=== PATIENT | male | born 1975 | race Caucasian/White ===

== ENCOUNTER 2016-09-26 18:53 | Emergency (ER) | payer BC ==
[2016-09-26 19:20] VITALS: BP 170/93
--- NOTE | 2016-09-26 19:55 | EDM.PDOC ---
ED HPI GENERAL MEDICAL PROBLEM - General Chief Complaint: Respiratory Problem Stated Complaint: COL/COUGH/WHEEZING/SHORT OF BREATH Time Seen by Provider: 09/26/16 19:40 Source of Information: Reports: Patient History Limitations: Reports: No Limitations - History of Present Illness INITIAL COMMENTS - FREE TEXT/NARRATIVE: HISTORY AND PHYSICAL: History of present illness: [Patient comes emergency room complaining of cough sputum production. He was evaluated about 10 days ago at [facility] and diagnosed with bilateral ear infection and bronchitis. He was started on Augmentin that he was supposed to take for 10 days. He completed 5 days of Augmentin and felt completely improved. He is not taking the medicine. This morning his symptoms returned and he is feeling worse than he did previously. He took 2 doses of Augmentin today and has not felt significantly improved. He denies fever and chills. Her crackling sound in his chest once earlier today but this resolved with coughing. No wheezing. No, pain nausea or vomiting. He has no other complaints or concerns at this time. He is not taking any [id number] medications for his symptoms.] Review of systems: As per history of present illness and below otherwise all systems reviewed and negative. Past medical history: As per history of present illness and as reviewed below otherwise noncontributory. Surgical history: As per history of present illness and as reviewed below otherwise noncontributory. Social history: No reported history of drug or alcohol abuse. Family history: As per history of present illness and as reviewed below otherwise noncontributory. Physical exam: HEENT: Atraumatic, normocephalic. Right TM is very slightly injected without surrounding erythema or bulging. Oral mucous membranes are pink and moist tonsillar swelling erythema or exudate. Neck is supple no lymphadenopathy. No tenderness. Lungs: Clear to auscultation, breath sounds equal bilaterally, no wheezing crackles or rales. chest nontender. Heart: S1S2, regular, negative for clicks, rubs, or JVD. Genitourinary: Deferred. Rectal: Deferred. Extremities: Atraumatic, ambulates without difficulty or assistive device. Neurovascular unremarkable. Neuro: Awake, alert, oriented. Motor and sensory unremarkable throughout. Exam nonfocal. Impression: [URI] Plan: [Azithromycin in the form of a Z-Abdulaziz #1 use instructed zero refills is sent to the pharmacy. Recommend Robitussin and Delsym cough syrup as needed. Followup with PCP if not improving. He is in agreement with today's plan. All of his questions are answered and concerns are addressed her] Definitive disposition and diagnosis as appropriate pending reevaluation and review of above. - Related Data Allergies Allergy/AdvReac Type Severity Reaction Status Date / Time No Known Allergies Allergy Verified 09/26/16 19:13 Home Meds: Home Meds Azithromycin [IJD: Azithromycin] 250 mg PO ASDIRECTED #6 tab 09/26/16 [Rx] Past Medical History - Past Health History Medical/Surgical History: Denies Medical/Surgical History Social & Family History - Family History Family Medical History: Noncontributory - Tobacco Use Smoking Status *Q: Never Smoker Second Hand Smoke Exposure: No - Caffeine Use Caffeine Use: Reports: None - Alcohol Use Days Per Week of Alcohol Use: 0 - Recreational Drug Use Recreational Drug Use: No ED ROS GENERAL - Review of Systems Review Of Systems: ROS reveals no pertinent complaints other than HPI. ED EXAM, GENERAL - Physical Exam Exam: See Below Course - Vital Signs Last Recorded V/S: Last Vital Signs Temp 99.4 F 09/26/16 19:15 Pulse 70 09/26/16 19:15 Resp 16 09/26/16 19:15 BP 170/93 H 09/26/16 19:15 Pulse Ox 99 09/26/16 19:15 Departure - Departure Time of Disposition: 19:55 Disposition: Refer to Observation Condition: good Clinical Impression: URI (upper respiratory infection) Qualifiers: URI type: unspecified URI Qualified Code(s): J06.9 - Acute upper respiratory infection, unspecified - Discharge Information Prescriptions: Azithromycin [IJD: Azithromycin] 250 mg PO ASDIRECTED #6 tab Instructions: Shortness of Breath, [id number] Referrals: Mike Mc MD [Primary Care Provider] - Forms: ED Department Discharge Additional Instructions: The following information is given to patients seen in the emergency department who are being discharged to home. This information is to outline your options for follow-up care. We provide all patients seen in our emergency department with a follow-up referral. The need for follow-up, as well as the timing and circumstances, are variable depending upon the specifics of your emergency department visit. If you don't have a primary care physician on staff, we will provide you with a referral. We always advise you to contact your personal physician following an emergency department visit to inform them of the circumstance of the visit and for follow-up with them and/or the need for any referrals to a consulting specialist. The emergency department will also refer you to a specialist when appropriate. This referral assures that you have the opportunity for follow-up care with a specialist. All of these measure are taken in an effort to provide you with optimal care, which includes your follow-up. Under all circumstances we always encourage you to contact your private physician who remains a resource for coordinating your care. When calling for follow-up care, please make the office aware that this follow-up is from your recent emergency room visit. If for any reason you are refused follow-up, please contact the [facility] emergency department at and asked to speak to the emergency department charge nurse. [facility] [address] [place] [id number] Followup with your primary care provider or at the clinical listed above in 48- 72 hours. Robitussin or Delsym cough syrup as needed for cough, Tylenol or ibuprofen as needed for fever. Return to ER as needed as discussed
== END 2016-09-26 20:17 | disposition other institution (70) ==
LOC: MW.ED 18:53
DX: J06.9 Acute upper respiratory infection, unspecified (principal)
CPT/HCPCS: 99283; 99284